=== PATIENT | male | born 2000 | race African-American/Black ===

== ENCOUNTER 2020-08-14 12:47 | Emergency (ER) | payer OTHER ==
[~2020-08-14] VITALS: Ht 188 cm; Wt 102.2 kg
[2020-08-14] MEDS ORDERED: BENZ-18 PO (12:55)
[2020-08-14] MEDS ORDERED: CETI-24 PO (12:55)
[2020-08-14] MEDS ORDERED: PENICILLIN V POTASSIUM 500 MG TAB PO ONE (13:30)
[2020-08-14] MEDS ORDERED: PENI500T PO (13:36)
[2020-08-14 13:52] VITALS: BP 138/74
== END 2020-08-14 13:53 | disposition home or self-care (01) ==
LOC: M ED 12:47
DX: J02.0 Streptococcal pharyngitis (principal); Z79.899 Other long term (current) drug therapy
CPT/HCPCS: 99283; U0003